=== PATIENT | male | born 1975 | race Caucasian/White ===

== ENCOUNTER 2020-07-17 20:42 | Emergency (ER) | payer OTHER ==
[2020-07-17 21:09] VITALS: BMI 27.8
[2020-07-17] MEDS ORDERED: ACETAMINOPHEN 500 MG TABLET (FP) PO ONE (22:41)
[2020-07-17] MEDS ORDERED: ACETAMINOPHEN 500 MG TABLET (FP) ONE (22:42)
[2020-07-17] MEDS ORDERED: DIPHTH,PERTUSS(ACELL),TET 0.5 ML DISP.SYRIN IM ONE ×2 (23:08→23:10)
[2020-07-17] MEDS ORDERED: LIDOCAINE HCL 2% (20ML MULTI-DOSE VIAL) ONE (23:33)
[2020-07-18 00:55] VITALS: BP 118/77; PULSE 64; TEMP 99.8
[2020-07-18] MEDS ORDERED: CEFAZOLIN 1 GM/D5W 1 GM/50 ML BAG IVPB ONE (01:11)
[2020-07-18] MEDS ORDERED: ceFAZolin SODIUM 1 GM VIAL ONE (01:12)
== END 2020-07-18 02:25 | disposition short-term general hospital (02) ==
LOC: FER 20:42
PROC: 3E0234Z Introduction of Serum, Toxoid and Vaccine into Muscle, Percutaneous Approach (ICD-10-PCS; principal; 2020-07-17)
PROC: 0HQ1XZZ Repair Face Skin, External Approach (ICD-10-PCS; principal; 2020-07-17)
PROC: 0HQDXZZ Repair Right Lower Arm Skin, External Approach (ICD-10-PCS; principal; 2020-07-17)
PROC: 3E033GC Introduction of Other Therapeutic Substance into Peripheral Vein, Percutaneous Approach (ICD-10-PCS; 2020-07-18)
DX: S02.601B Fracture of unspecified part of body of right mandible, initial encounter for open fracture (principal); S02.602B Fracture of unspecified part of body of left mandible, initial encounter for open fracture; W01.198A Fall on same level from slipping, tripping and stumbling with subsequent striking against other object, initial encounter
CPT/HCPCS: 70450-TC; 70486-TC; 72125-TC; 73110-TC-RT-FY; 73590-TC-LT-FY; 90715; 99285-25